=== PATIENT | female | born 1970 | race Hispanic/Latino ===

== ENCOUNTER 2017-07-06 17:15 | Emergency (ER) | payer MEDICAID ==
[2017-07-06 17:15] VITALS: BMI 20.9
[2017-07-06 17:23] VITALS: PULSE 82; RESP 18; O2SAT 100
[2017-07-06 18:28] LABS: VENOUS BLOOD GAS BASE EXCESS 2.7 mmol/L (0.0-2.0); VENOUS BLOOD GAS PCO2 50 mmHg (40-60); VENOUS BLOOD PH 7.37 (7.32-7.43)
[2017-07-06 18:30] LABS: EOS # 0.1 K/uL (0.0-0.7); LYMPH # 0.1 K/uL (1.0-4.3); LYMPH % 1.3 % (20.0-40.0); MEAN CORPUSCULAR HEMOGLOBIN 32.2 pg (27.0-31.0)
[2017-07-06 18:40] LABS: ALB/GLOB RATIO 1.2 (1.0-2.1); ALKALINE PHOSPHATASE 76 U/L (38-126); ALT/SGPT 54 U/L (9-52); AST/SGOT 30 U/L (14-36); BILIRUBIN,TOTAL 0.3 mg/dl (0.2-1.3); BLOOD UREA NITROGEN 17 mg/dl (7-17); CALCIUM 9.3 mg/dL (8.4-10.2); CARBON DIOXIDE 27 mmol/L (22-30); CHLORIDE 105 mmol/L (98-107); GFR AFRICAN-AMERICAN > 60; GLUCOSE,RANDOM 102 mg/dL (65-105); POTASSIUM 3.6 MMOL/L (3.6-5.0); SODIUM 140 mmol/l (132-148); TOTAL PROTEIN 6.3 G/DL (6.3-8.2)
[2017-07-06 18:47] LABS: BASO % 0.3 % (0.0-2.0); EOS % 0.7 % (0.0-4.0); HEMATOCRIT 38.4 % (34.0-47.0); MEAN CELL VOLUME 96.1 fl (81.0-99.0); MEAN CORPUSCULAR HGB CONC 33.6 g/dL (33.0-37.0); MEAN PLATELET VOLUME 9.3 fl (7.2-11.7); MONO % 8.7 % (0.0-10.0); NEUT # 9.8 K/uL (1.8-7.0); PLATELET COUNT 163 K/uL (130-400); RED CELL DISTRIBUTION WIDTH 13.2 % (11.5-14.5)
[2017-07-06 18:49] LABS: PARTIAL THROMBOPLASTIN TIME 29.4 Seconds (25.6-37.1)
--- NOTE | 2017-07-06 18:51 | ED PDOC ---
Addendum entered and electronically signed by Alisha Geronimo PA 07/09/17 10:13: Addendum Addendum: 07/09/17 10:12 Wound Cx results demonstrate sensitivity to CIPRO and resistance to pcn/ clinamycin. Cipro 500mg bid x 7 days called in to pharmacy [phone]. Patient has f/u with surgeon tomorrow. Original Note: HPI: Wound Care - HPI Chief Complaint (Provider): breast implant incision pain History Per: Patient Exam Limitations: no limitations Onset/Duration Of Symptoms: Days Location Of Injury: Right: Chest (inferior aspect of breast, where surgical incision was) Quality Of Symptoms: Painful, Swollen, Draining Additional Complaint(s): Pt is 46 yo F with PMH multiple sclerosis, who presented to the ED today after her co-workers noticed that her shirt was wet at her right breast. Pt underwent replacement of breast implants (which she has had for 13 yrs) last month, in May and 10 days later, the right incision opened. Pt saw her plastic surgeon the next day; he closed the wound and prescribed amoxicillin, and asked pt to follow up with him every few days, which pt has been doing. Two days ago, pt had not seen surgeon in 4 days, and stated that the entire right breast started to hurt. Pt saw surgeon yesterday- he then prescribed amoxicillin and clindamycin for 6 days. Pt saw surgeon today- states he cleaned the wound and asked her to come back tomorrow, but pt came here at the suggestion of her co- workers. Pt rates the pain a 10/10, localized to right breast and right sided chest wall, states pain does not radiate. Denies fever, chills, shortness of breath, crushing chest pain, palpitations, abdominal pain, nausea, vomiting, diarrhea, issues urinating, any blood in urine or stool. Pt was unable to recall the name of antibiotics she was on, so call was placed to her pharmacy, [facility] in [place]. Call was attempted to be placed to plastic surgeon Dr. Shiva Ramirez, but no service was in place to take the call. <Tisha Stearns - Last Filed: 07/06/17 19:30> <Alisha Geronimo - Last Filed: 07/09/17 10:12> <Ana Schmidt - Last Filed: 07/11/17 18:42> - HPI Time Seen by Provider: 07/06/17 17:26 Chief Complaint (Nursing): Wound Check Past Medical History Vital Signs: Last Vital Signs Temp 98.6 F 07/06/17 17:18 Pulse 82 07/06/17 17:18 Resp 18 07/06/17 17:18 BP 133/72 07/06/17 17:18 Pulse Ox 100 07/06/17 17:18 - Medical History PMH: Migraine ("a couple years back", had taken topamax with no relief), Multiple Sclerosis ([place]) Denies: Chronic Kidney Disease - Surgical History Surgical History: ( x 1) Other surgeries: breast augmentation x2. tummy tuck x1 - Family History Family History: States: CAD (father), Diabetes (father), Hypertension (mother) - Social History Current smoker - smoking cessation education provided: Yes (smokes 3-4 cig/ week. Used to smoke 2ppd for 10 yrs; stopped 1.5 yrs ago) Alcohol: Occasional Drugs: Denies - Immunization History Hx Tetanus Toxoid Vaccination: No Hx Influenza Vaccination: No Hx Pneumococcal Vaccination: No <Tisha Stearns - Last Filed: 07/06/17 19:30> <Alisha Geronimo - Last Filed: 07/09/17 10:12> Vital Signs: Last Vital Signs Temp 98.2 F 07/06/17 22:08 Pulse 82 07/06/17 22:08 Resp 18 07/06/17 22:08 BP 131/77 07/06/17 22:08 Pulse Ox 100 07/06/17 22:08 <Ana Schmidt - Last Filed: 07/11/17 18:42> - Home Medications Home Medications: Ambulatory Orders Medication Instructions Recorded Alprazolam 2 mg PO BID 04/25/15 Morphine Sulfate [Morphine Sulfate 30 mg PO BID 04/25/15 Immediate Release] Bifidobacterium Infantis [Align] 1 tab PO DAILY 12/06/16 Gabapentin 1 tab PO TID 12/06/16 Morphine Sulfate [Morphine Sulfate 1 tab PO PRN PRN 12/06/16 Cr] Psyllium Husk [Metamucil] 1 pkg PO PRN PRN 12/06/16 Topiramate [Topamax] 1 tab PO DAILY 12/06/16 - Allergies Allergies/Adverse Reactions: Allergies Allergy/AdvReac Type Severity Reaction Status Date / Time No Known Allergies Allergy Verified 03/11/16 13:33 Review of Systems ROS Statement: Except As Marked, All Systems Reviewed And Found Negative Skin: Positive for: Other (wound at breast augmentation incision) <Tisha Stearns - Last Filed: 07/06/17 19:30> Physical Exam - Physical Exam Appears: Positive for: Non-toxic, No Acute Distress Head Exam: Positive for: ATRAUMATIC, NORMAL INSPECTION Skin: Positive for: Normal Color, Warm. Negative for: Diaphoresis, Pallor Eye Exam: Positive for: Normal appearance (pt in colored contacts), EOMI ENT: Positive for: Normal ENT Inspection. Negative for: Nasal Congestion, Pharyngeal Erythema, Tonsillar Exudate Neck: Positive for: Normal, Painless ROM, Supple Cardiovascular/Chest: Positive for: Regular Rate, Rhythm, Other (Wound at infenior aspect of right breast leaking small visible amount of yellow pus-like fluid. Chest wall tenderness between breasts, and inferiorly and lateraly to R breast. Incision on L breast clean, dry, intact.) Respiratory: Positive for: Normal Breath Sounds. Negative for: Decreased Breath Sounds, Wheezing, Respiratory Distress Gastrointestinal/Abdominal: Positive for: Normal Exam, Bowel Sounds, Soft. Negative for: Tenderness, Mass Extremity: Positive for: Normal ROM. Negative for: Pedal Edema Neurologic/Psych: Positive for: Alert, Oriented <Tisha Stearns - Last Filed: 07/06/17 19:30> - Laboratory Results Result Diagrams: 07/06/17 18:10 07/06/17 18:10 - ECG O2 Sat by Pulse Oximetry: 100 - Progress ED Course And Treament: Pt seen and evaluated. Vital signs reviewed; stable, afebrile, normotensive, heart rate not elevated. Initial plan: CMP CBC PT/PTT Blood culture Would culture and gram stain Breast u/s VBG shock panel Lactate wnl mildly elevated WBC w/ left shift CMP mild elevation ALT, otherwise unremarkable Case discussed w/ Dr. Schmidt <Tisha Stearns - Last Filed: 07/06/17 19:30> - Laboratory Results Result Diagrams: 07/06/17 18:10 07/06/17 18:10 <Ana Schmidt - Last Filed: 07/11/17 18:42> Disposition - Patient ED Disposition Is Patient to be Admitted: Transfer of Care (to Dr. 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 <Ana Schmidt - Last Filed: 07/11/17 18:42>
[2017-07-06 19:46] LABS: EOSINOPHIL 1 % (0-7); NEUTROPHIL 86 % (42-75); TOTAL CELLS COUNTED 100
--- NOTE | 2017-07-06 21:31 | US ---
EXAM: US Right Breast Limited CLINICAL HISTORY: 46 years old, female; Signs and symptoms; Other: S/P implant replaced. Pain; Prior surgery; Surgery date: <1 month; Surgery type: S/P implant replaced on 06/13/17; Additional info: Infection R/O abscess TECHNIQUE: Static sonographic images of the right breast with image documentation utilizing a linear transducer. COMPARISON: No relevant prior studies available. FINDINGS: Limited study dedicated to right breast at site of incision at 6 o'clock. No free fluid or focal collection visualized at 6 o'clock at the site of incision. IMPRESSION: Limited study dedicated to right breast at site of incision at 6:00. No free fluid or focal collection visualized at 6 o'clock at the site of incision. Study does not evaluate integrity of the implant or remainder of the breast tissue beyond region of interest/site of incision. Correlate clinically. Followup as warranted.
[2017-07-06 22:09] VITALS: BP 131/77; TEMP 98.2
== END 2017-07-06 22:13 | disposition home or self-care (01) ==
LOC: H.ER 17:15
DX: N61.0 Mastitis without abscess (principal); F17.210 Nicotine dependence, cigarettes, uncomplicated
CPT/HCPCS: 76642; 80053; 82803; 85025; 85610; 85730; 86850; 86900; 87040; 87070; 96374; 96375; 99284; J1885; J2270

== ENCOUNTER 2017-09-26 23:07 | Emergency (ER) | payer MEDICAID ==
[2017-09-26 23:08] VITALS: BMI 20.9
[2017-09-26 23:22] VITALS: BP 136/64; PULSE 73; RESP 18; TEMP 99.6; O2SAT 99
--- NOTE | 2017-09-27 00:08 | ED PDOC ---
HPI: Wound Care <Alisha Geronimo - Last Filed: 09/27/17 23:54> - HPI Chief Complaint (Provider): right breast wound irritation History Per: Patient History Of Present Illness: 47 y/o female history of multiple sclerosis presents with irritation to right breast wound x 1 day. Patient states she had her 13 year old saline breast implants replaced in May by Dr. Ramirez in [place], and since then has had complications with surgical site reopening/infections. Patient followed up with Dr. Ramirez 07/16/17 and had a procedure in office to create a "pocket" under implant to prevent surgical site from reopening. Patient notes today before showering she found the incision site to be wet, when she looked she noted pus and clear drainage. Admits to "burning" sensation near incision site. Denies fever, nausea/vomiting, chest pain, abdominal pain. Patient did not contact her plastic surgeon because she does not plan on continuing her care with him. <Iesha Sultana - Last Filed: 09/29/17 05:31> - HPI Time Seen by Provider: 09/26/17 23:54 Chief Complaint (Nursing): Abnormal Skin Integrity Past Medical History Vital Signs: Last Vital Signs Temp 99.6 F 09/26/17 23:19 Pulse 73 09/26/17 23:19 Resp 18 09/26/17 23:19 BP 136/64 09/26/17 23:19 Pulse Ox 99 09/27/17 04:43 <Alisha Geronimo - Last Filed: 09/27/17 23:54> Reviewed: Historical Data, Nursing Documentation, Vital Signs Vital Signs: Last Vital Signs Temp 99.6 F 09/26/17 23:19 Pulse 73 09/26/17 23:19 Resp 18 09/26/17 23:19 BP 136/64 09/26/17 23:19 Pulse Ox 99 09/26/17 23:19 - Medical History PMH: Migraine ("a couple years back", had taken topamax with no relief), Multiple Sclerosis ([place]) Denies: Chronic Kidney Disease - Surgical History Surgical History: ( x 1) - Family History Family History: States: Unknown Family Hx, CAD (father), Diabetes (father), Hypertension (mother) - Immunization History Hx Tetanus Toxoid Vaccination: No Hx Influenza Vaccination: No Hx Pneumococcal Vaccination: No <Iesha Sultana - Last Filed: 09/29/17 05:31> - Home Medications Home Medications: Ambulatory Orders Medication Instructions Recorded Ciprofloxacin HCl [Cipro] 500 mg PO BID #13 tab 09/27/17 Alprazolam [Xanax] 2 mg PO Q8H PRN 09/28/17 Ascorbic Acid [Vitamin C 500 mg 1 tab PO DAILY 09/28/17 Tab] Cholecalciferol (Vitamin D3) 4,000 unit PO DAILY 09/28/17 [Vitamin D3] Cyanocobalamin [Vitamin B12] 500 mcg PO DAILY 09/28/17 Naloxegol Oxalate [Movantik] 25 mg PO DAILY PRN 09/28/17 - Allergies Allergies/Adverse Reactions: Allergies Allergy/AdvReac Type Severity Reaction Status Date / Time No Known Allergies Allergy Verified 03/11/16 13:33 Review of Systems ROS Statement: Except As Marked, All Systems Reviewed And Found Negative Skin: Positive for: Other (right breast incision site drainage) <Iesha Sultana - Last Filed: 09/29/17 05:31> Physical Exam - Reviewed Nursing Documentation Reviewed: Yes Vital Signs Reviewed: Yes - Physical Exam Appears: Positive for: Well, Non-toxic, No Acute Distress Head Exam: Positive for: ATRAUMATIC, NORMAL INSPECTION, NORMOCEPHALIC Cardiovascular/Chest: Positive for: Regular Rate, Rhythm, Other (right breast inframammary incision site with small puncture hole medial aspect; palpable soft , nontender lumpy structure at puncture hole site and also at 7:00 position on breast. No erythema, temp change, active drainage noted) Respiratory: Positive for: Normal Breath Sounds Extremity: Positive for: Normal ROM Neurologic/Psych: Positive for: Alert, Oriented <Iesha Sultana - Last Filed: 09/29/17 05:31> - Laboratory Results Result Diagrams: 09/27/17 01:21 09/27/17 01:21 <Alisha Geronimo - Last Filed: 09/27/17 23:54> - Laboratory Results Result Diagrams: 09/27/17 01:21 09/27/17 01:21 - ECG O2 Sat by Pulse Oximetry: 99 - Progress ED Course And Treament: labs, wound culture Patient educated on findings, discharged with rx Cipro (dose given in ED) which was sensitive on previous breast wound culture. Advised follow up with PS today. Return to ED for worsening/concerning symptoms. <Iesha Sultana - Last Filed: 09/29/17 05:31> Disposition <Alisha Geronimo - Last Filed: 09/27/17 23:54> - Patient ED Disposition Is Patient to be Admitted: No Counseled Patient/Family Regarding: Studies Performed, Diagnosis, Need For Followup - Disposition Disposition: Routine/Home Disposition Time: 02:59 <Iesha Sultana - Last Filed: 09/29/17 05:31> - Clinical Impression Clinical Impression: Wound dehiscence - Disposition Referrals: Peter Rosado MD [Primary Care Provider] - Condition: STABLE Additional Instructions: Follow up with your Plastic Surgeon today. Take medication as directed. Return to ED for worsening/concerning symptoms. Prescriptions: Ciprofloxacin HCl [Cipro] 500 mg PO BID #13 tab Instructions: Acute Wound Care (ED) Forms: [facility] ED School/Work Excuse
[2017-09-27 01:25] LABS: BASO % 0.3 % (0.0-2.0); EOS # 0.2 K/uL (0.0-0.7); EOS % 3.6 % (0.0-4.0); HEMATOCRIT 37.2 % (34.0-47.0); LYMPH # 0.2 K/uL (1.0-4.3); LYMPH % 4.6 % (20.0-40.0); MEAN CELL VOLUME 94.4 fl (81.0-99.0); MEAN CORPUSCULAR HEMOGLOBIN 31.9 pg (27.0-31.0); MEAN CORPUSCULAR HGB CONC 33.7 g/dL (33.0-37.0); MEAN PLATELET VOLUME 8.4 fl (7.2-11.7); MONO # 0.5 K/uL (0.0-0.8); NEUT # 4.2 K/uL (1.8-7.0); NEUT % 81.5 % (50.0-75.0); PLATELET COUNT 170 K/uL (130-400); RED CELL DISTRIBUTION WIDTH 12.9 % (11.5-14.5); WHITE BLOOD COUNT 5.1 K/uL (4.8-10.8)
[2017-09-27 01:31] LABS: BLOOD UREA NITROGEN 16 mg/dl (7-17); CALCIUM 8.9 mg/dL (8.4-10.2); CARBON DIOXIDE 29 mmol/L (22-30); CHLORIDE 102 mmol/L (98-107); GFR AFRICAN-AMERICAN > 60; GLUCOSE,RANDOM 120 mg/dL (65-105); POTASSIUM 4.2 MMOL/L (3.6-5.0); SODIUM 138 mmol/l (132-148)
[2017-09-27 04:23] LABS: NEUTROPHIL 83 % (42-75); TOTAL CELLS COUNTED 100
[2017-09-27 04:39] LABS: EOSINOPHIL 1 % (0-7)
== END 2017-09-27 03:19 | disposition home or self-care (01) ==
LOC: H.ER 23:07
DX: T81.31XA Disruption of external operation (surgical) wound, not elsewhere classified, initial encounter (principal); G35 Multiple sclerosis

== ENCOUNTER 2017-09-28 09:23 | Inpatient (IN) | payer MEDICAID ==
[2017-09-28 09:24] VITALS: BMI 20.9
--- NOTE | 2017-09-28 10:25 | ED PDOC ---
HPI: General Adult Time Seen by Provider: 09/28/17 09:29 Chief Complaint (Nursing): Abnormal Labs Chief Complaint (Provider): Positive blood culture History Per: Patient History/Exam Limitations: no limitations Onset/Duration Of Symptoms: Days Have you had recent travel within the past 21 days to any of the following countries: [place], [place], [place] or [place]?: No Recently: Seen In ED Additional Complaint(s): 47yo female, presents to ED today for a follow up visit. Patient states she was called yesterday to return to the ED as she had a positive blood culture. Patient states she was here early yesterday morning for evaluation of discharge from a wound on her right breast. Patient states she had a breast implant in her right breast and recently, she went to Dr. Ramirez, plastic surgeon who replaced the implant in her right breast. Patient states after the surgery, she had multiple complications including dehiscence and discharge from the wound. Patient currently denies any fever, chills, cough, vomiting, weakness, abdominal pain, headache, back pain. Patient does report mild rhinorrhea as she has had "a cold for several days". She reports taking Cippro 2 doses yesterday as prescribed and states her symptoms have not worsened. No other complaints. Past Medical History Reviewed: Historical Data, Nursing Documentation, Vital Signs Vital Signs: Last Vital Signs Temp 97.0 F L 09/28/17 09:29 Pulse 70 09/28/17 09:29 Resp 20 09/28/17 09:29 BP 123/72 09/28/17 09:29 Pulse Ox 97 09/28/17 14:35 - Medical History PMH: Migraine ("a couple years back", had taken topamax with no relief), Multiple Sclerosis ([place]) Denies: Chronic Kidney Disease - Surgical History Surgical History: ( x 1) - Family History Family History: States: Unknown Family Hx, CAD (father), Diabetes (father), Hypertension (mother) - Immunization History Hx Tetanus Toxoid Vaccination: No Hx Influenza Vaccination: No Hx Pneumococcal Vaccination: No - Home Medications Home Medications: Ambulatory Orders Medication Instructions Recorded Alprazolam 2 mg PO BID 04/25/15 Morphine Sulfate [Morphine Sulfate 30 mg PO BID 04/25/15 Immediate Release] Bifidobacterium Infantis [Align] 1 tab PO DAILY 12/06/16 Gabapentin 1 tab PO TID 12/06/16 Morphine Sulfate [Morphine Sulfate 1 tab PO PRN PRN 12/06/16 Cr] Psyllium Husk [Metamucil] 1 pkg PO PRN PRN 12/06/16 Topiramate [Topamax] 1 tab PO DAILY 12/06/16 Ciprofloxacin HCl [Cipro] 500 mg PO BID #13 tab 09/27/17 - Allergies Allergies/Adverse Reactions: Allergies Allergy/AdvReac Type Severity Reaction Status Date / Time No Known Allergies Allergy Verified 03/11/16 13:33 Review of Systems ROS Statement: Except As Marked, All Systems Reviewed And Found Negative Constitutional: Negative for: Fever, Chills Cardiovascular: Negative for: Chest Pain Respiratory: Negative for: Shortness of Breath Gastrointestinal: Negative for: Nausea, Vomiting Musculoskeletal: Negative for: Back Pain Neurological: Negative for: Headache Physical Exam - Reviewed Nursing Documentation Reviewed: Yes Vital Signs Reviewed: Yes - Physical Exam Appears: Positive for: Non-toxic, No Acute Distress Head Exam: Positive for: ATRAUMATIC, NORMAL INSPECTION, NORMOCEPHALIC Skin: Positive for: Normal Color Eye Exam: Positive for: Normal appearance Neck: Positive for: Supple Cardiovascular/Chest: Positive for: Regular Rate, Rhythm Respiratory: Positive for: Normal Breath Sounds Gastrointestinal/Abdominal: Positive for: Soft. Negative for: Tenderness Back: Positive for: Normal Inspection Extremity: Positive for: Normal ROM. Negative for: Deformity Neurologic/Psych: Positive for: Alert, Oriented. Negative for: Motor/Sensory Deficits - Laboratory Results Result Diagrams: 09/28/17 10:20 09/28/17 10:20 - ECG O2 Sat by Pulse Oximetry: 97 (RA) Pulse Ox Interpretation: Normal Medical Decision Making Medical Decision Making: Time: 957 Impression: Positive blood culture; rule out sepsisemia, bacteremia DDx: Contamination of blood culture Plan: -- BMP -- CBC -- Blood culture -- Reassess Time: 14:[address] Guevara, infectious disease specialist, who recommends patient be admitted and started on IV Zosyn, and IV Vancomycin. Scribe Attestation: Documented by Keisha Green & Mone Rodney, acting as a scribe for Gogo Platt MD. Provider Attestation: All medical record entries made by the Scribe were at my direction and personally dictated by me. I have reviewed the chart and agree that the record accurately reflects my personal performance of the history, physical exam, medical decision making, and the department course for this patient. I have also personally directed, reviewed, and agree with the discharge instructions and disposition. Disposition - Clinical Impression Clinical Impression: Breast infection, Bacteremia - Patient ED Disposition Is Patient to be Admitted: Yes Discussed With : Cassius Marks Doctor Will See Patient In The: Hospital Counseled Patient/Family Regarding: Studies Performed, Diagnosis - Disposition Disposition Time: 14:15 Condition: FAIR - Pt Status Changed To: Hospital Disposition Of: Inpatient - Admit Certification Admit to Inpatient:: After my assessment, the patient will require hospitalization for at least two midnights. This is because of the severity of symptoms shown, intensity of services needed, and/or the medical risk in this patient being treated as an outpatient. - POA Present On Arrival: Surgical Site Infection
[2017-09-28 10:35] LABS: BASO % 0.2 % (0.0-2.0); EOS # 0.1 K/uL (0.0-0.7); EOS % 2.7 % (0.0-4.0); HEMATOCRIT 40.4 % (34.0-47.0); LYMPH # 0.2 K/uL (1.0-4.3); LYMPH % 4.1 % (20.0-40.0); MEAN CELL VOLUME 94.8 fl (81.0-99.0); MEAN CORPUSCULAR HEMOGLOBIN 32.4 pg (27.0-31.0); MEAN CORPUSCULAR HGB CONC 34.1 g/dL (33.0-37.0); MEAN PLATELET VOLUME 8.6 fl (7.2-11.7); MONO # 0.5 K/uL (0.0-0.8); MONO % 9.7 % (0.0-10.0); NEUT # 4.4 K/uL (1.8-7.0); NEUT % 83.3 % (50.0-75.0); NRBC % 0.1 % (0.0-0.0); WHITE BLOOD COUNT 5.3 K/uL (4.8-10.8)
[2017-09-28 11:01] LABS: BLOOD UREA NITROGEN 15 mg/dl (7-17); CALCIUM 9.4 mg/dL (8.4-10.2); CARBON DIOXIDE 23 mmol/L (22-30); CHLORIDE 106 mmol/L (98-107); GFR AFRICAN-AMERICAN > 60; GLUCOSE,RANDOM 98 mg/dL (65-105); SODIUM 137 mmol/l (132-148)
[2017-09-28 11:18] LABS: POTASSIUM 4.8 MMOL/L (3.6-5.0)
[2017-09-28] MEDS ORDERED: cefTRIAXone IV 1 gm in Dextros 50 ML IVPB STA (12:11)
[2017-09-28] MEDS ORDERED: cefTRIAXone IV 1 gm in Dextros 50 ML IVPB ONE (12:44)
[2017-09-28] MEDS ORDERED: Piperacillin/Tazobact 3.375 GM in Sodium Chloride 0.9% 100 ML IVPB STA (14:02)
[2017-09-28] MEDS ORDERED: Vancomycin 1 g Inj ONE (14:12)
[2017-09-29] MEDS ORDERED: Piperacillin/Tazobact 3.375 GM in Sodium Chloride 0.9% 100 ML IVPB SCH
[2017-09-29] MEDS: Piperacillin/Tazobact 3.375 GM in Sodium Chloride 0.9% 100 ML IVPB SCH ×4 (03:57→21:52)
[2017-09-29 07:20] LABS: HEMATOCRIT 34.8 % (34.0-47.0); MEAN CELL VOLUME 95.7 fl (81.0-99.0); MEAN CORPUSCULAR HEMOGLOBIN 32.2 pg (27.0-31.0); MEAN CORPUSCULAR HGB CONC 33.7 g/dL (33.0-37.0); RED CELL DISTRIBUTION WIDTH 12.8 % (11.5-14.5); WHITE BLOOD COUNT 4.4 K/uL (4.8-10.8)
[2017-09-29 07:24] LABS: ALKALINE PHOSPHATASE 43 U/L (38-126); ALT/SGPT 32 U/L (9-52); AST/SGOT 17 U/L (14-36); BILIRUBIN,TOTAL 0.3 mg/dl (0.2-1.3); BLOOD UREA NITROGEN 15 mg/dl (7-17); CALCIUM 8.7 mg/dL (8.4-10.2); CARBON DIOXIDE 26 mmol/L (22-30); CHLORIDE 107 mmol/L (98-107); CHOLESTEROL 139 mg/dL (0-199); GFR AFRICAN-AMERICAN > 60; GLUCOSE,RANDOM 85 mg/dL (65-105); SODIUM 140 mmol/l (132-148); TOTAL PROTEIN 5.4 G/DL (6.3-8.2)
[2017-09-29 07:36] LABS: ALB/GLOB RATIO 1.6 (1.0-2.1)
[2017-09-29 07:39] LABS: T4 6.45 ug/dl (5.5-11.0)
[2017-09-29 08:05] LABS: THYROID STIMULATING HORMONE < 0.02 mIU/ML (0.46-4.68)
[2017-09-29] MEDS: CYANOCOBALAMIN 500 MCG TAB PO SCH (09:10)
--- NOTE | 2017-09-29 14:27 | CP.PCM.CON ---
History of Present Illness - History of Present Illness History of Present Illness: Plastic Surgery- Dr. Beasley 47F pmhx of Multiple sclerosis, breast implant and revision, initially presented to [facility] emergency department on 09/27/17. Blood and wound cultures were taken. at the time patient was discharged w/ local wound care. Blood cultures came back positive for Gram positive rods, bacillus species. Patient had breast implants initially 13 years ago, revision was performed in May of this year. Patient stated right breast has skin opening with yellow drainage. An attempt to close the wound was tried x2 and it re-opened with continued drainage. patient currently denies fevers, chills, chest pain, shortness of breath, nausea , vomiting, diarrhea, headaches, numbness/tingling in extremities PMH: stated above PSH: Breast implants (13 years ago), re-implant (2016), abdominoplasty ALL: NKDA Review of Systems - Review of Systems All systems: reviewed and no additional remarkable complaints except - Constitutional Constitutional: As Per HPI Past Patient History - Past Medical History & Family History Past Medical History?: Yes - Past Social History Smoking Status: Never Smoked - CARDIAC Hx Cardiac Disorders: No - PULMONARY Hx Respiratory Disorders: No - NEUROLOGICAL Hx Neurological Disorder: Yes Hx Multiple Sclerosis: Yes - HEENT Hx HEENT Problems: No - RENAL Hx Chronic Kidney Disease: No - ENDOCRINE/METABOLIC Hx Endocrine Disorders: No - HEMATOLOGICAL/ONCOLOGICAL Hx Blood Disorders: No - INTEGUMENTARY Hx Dermatological Problems: No - MUSCULOSKELETAL/RHEUMATOLOGICAL Hx Musculoskeletal Disorders: No Hx Falls: No - GASTROINTESTINAL Hx Gastrointestinal Disorders: No - GENITOURINARY/GYNECOLOGICAL Hx Genitourinary Disorders: No - PSYCHIATRIC Hx Psychophysiologic Disorder: No Hx Substance Use: No - SURGICAL HISTORY Hx Surgeries: Yes Hx Section: Yes Other/Comment: Breast implant, tummy tuck - ANESTHESIA Hx Anesthesia: Yes Hx Anesthesia Reactions: No Hx Malignant Hyperthermia: No Has any member of the family had a problem w/ anesthesia?: No Meds Allergies/Adverse Reactions: Allergies Allergy/AdvReac Type Severity Reaction Status Date / Time No Known Allergies Allergy Verified 03/11/16 13:33 - Medications Medications: Current Medications Alprazolam (Xanax) 1 mg PO Q8 PRN PRN Reason: Anxiety Last Admin: 09/28/17 22:42 Dose: 1 mg Ascorbic Acid (Vitamin C 500 Mg Tab) 500 mg PO DAILY [place] Last Admin: 09/29/17 09:10 Dose: 500 mg Cholecalciferol (Vitamin D) 4,000 iu PO DAILY [facility] Last Admin: 09/29/17 09:10 Dose: 4,000 iu Cyanocobalamin (Vitamin B12) 500 mcg PO DAILY [facility] Last Admin: 09/29/17 09:10 Dose: 500 mcg Home Med (Naloxegol Oxalate [Movantik]) 25 mg PO DAILY PRN PRN Reason: Constipation Vancomycin HCl 1 gm/ Sodium (Chloride) 250 mls @ 166.667 mls/hr IVPB Q12@0200, 1400 [place] PRN Reason: Protocol Last Admin: 09/29/17 01:14 Dose: 166.667 mls/hr Piperacillin Sod/Tazobactam (Sod 3.375 gm/ Sodium Chloride) 100 mls @ 100 mls/ hr IVPB Q6 [place] PRN Reason: Protocol Last Admin: 09/29/17 13:09 Dose: 100 mls/hr Ibuprofen (Motrin Tab) 400 mg PO Q6 PRN PRN Reason: Headache Last Admin: 09/29/17 09:30 Dose: 400 mg Physical Exam - Constitutional Appears: Non-toxic, No Acute Distress - Head Exam Head Exam: ATRAUMATIC - Eye Exam Eye Exam: EOMI. absent: Scleral icterus - ENT Exam ENT Exam: Mucous Membranes Moist - Neck Exam Neck exam: Positive for: Normal Inspection - Respiratory Exam Respiratory Exam: NORMAL BREATHING PATTERN. absent: Accessory Muscle Use, Respiratory Distress - Cardiovascular Exam Cardiovascular Exam: +S1, +S2. absent: Bradycardia, Tachycardia - GI/Abdominal Exam GI & Abdominal Exam: Normal Bowel Sounds, Soft. absent: Distended, Firm, Guarding, Rigid, Tenderness - Exam Additional comments: Breast Exam: Right breast smaller than left. opening sub-areolar. Active drainage, especially when pressure is applied superior to breast - Extremities Exam Extremities exam: Positive for: normal inspection. Negative for: calf tenderness - Back Exam Back exam: NORMAL INSPECTION. absent: CVA tenderness (L), CVA tenderness (R) - Neurological Exam Neurological exam: Alert, Normal Gait, Oriented x3 - Psychiatric Exam Psychiatric exam: Normal Affect - Skin Additional comments: right breast sub areolar tract, actively draining. Results - Vital Signs Recent Vital Signs: Last Vital Signs Temp 97.5 F L 09/29/17 08:03 Pulse 95 H 09/29/17 08:03 Resp 20 09/29/17 08:03 BP 165/87 H 09/29/17 08:03 Pulse Ox 97 09/29/17 08:03 - Labs Result Diagrams: 09/29/17 06:20 09/29/17 06:20 Labs: Laboratory Results - last 24 hr 09/29/17 09/29/17 09/29/17 06:20 06:20 07:07 WBC 4.4 L RBC 3.63 L Hgb 11.7 L D Hct 34.8 MCV 95.7 MCH 32.2 H MCHC 33.7 RDW 12.8 Plt Count 149 Sodium 140 Potassium 4.0 Chloride 107 Carbon Dioxide 26 Anion Gap 11 BUN 15 Creatinine 0.7 Est GFR ( Amer) > 60 Est GFR (Non-Af Amer) > 60 Random Glucose 85 Lactic Acid 1.1 Calcium 8.7 Total Bilirubin 0.3 AST 17 ALT 32 Alkaline Phosphatase 43 Total Protein 5.4 L Albumin 3.3 L Globulin 2.1 L Albumin/Globulin Ratio 1.6 Triglycerides 47 Cholesterol 139 LDL Cholesterol Direct 79 HDL Cholesterol 55 25-OH Vitamin D Total Thyroxine (T4) 6.45 TSH 3rd Generation < 0.02 L 09/29/17 08:33 WBC RBC Hgb Hct MCV MCH MCHC RDW Plt Count Sodium Potassium Chloride Carbon Dioxide Anion Gap BUN Creatinine Est GFR ( Amer) Est GFR (Non-Af Amer) Random Glucose Lactic Acid Calcium Total Bilirubin AST ALT Alkaline Phosphatase Total Protein Albumin Globulin Albumin/Globulin Ratio Triglycerides Cholesterol LDL Cholesterol Direct HDL Cholesterol 25-OH Vitamin D Total 33.7 Thyroxine (T4) TSH 3rd Generation Assessment & Plan - Assessment and Plan (Free Text) Assessment: 47F w/ bacteremia, 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 Ramos Calderon PGY1
--- NOTE | 2017-09-29 15:33 | CP.PCM.HP ---
History of Present Illness - History of Present Illness History of Present Illness: CC: Positive Blood Cultures. 47 y/o F, Hx of Breast implants, [facility] after been found with a Blood C-S 09-27-17 positive for Gram ( + ) Bacillus species, onset of wound 3 day [employer] with no improvement. Initially, Pt came to [facility] ER on 09/27/17 c/o of R breast pain and discharge x 1 day prior to ER visit. Hx of breast complications after her last breast implant revision on May 2017 at [facility] by Plastic Surgeon, Dr. Ramirez , there after attempt to close the wound was tried x 2 and it reopened with continue discharge yellow drainage. Pt with Hx of R Breast implant 13 yrs ago doing well until replacement was done. Pt came to ER [facility] 09-27-17 for drainage and pain in her R breast, she had blood C-S and C-S from wound site. Next day Pt was called to have f/u visit in the hospital for positive wound C-S and eventually was admitted. Hx. of MS. Aggravated factor: Pain on palpation to R breast. Pt denied: Fever, chills, n/v/d, abdominal pain, urinary symptoms, weakness, dizziness, headache, tingling, numbness, CP, SOB, sick contact, recent travel. Present on Admission - Present on Admission Any Indicators Present on Admission: No Review of Systems - Review of Systems All systems: reviewed and no additional remarkable complaints except (for HPI.) - Constitutional Constitutional: Other (neg) - EENT Eyes: Other (neg) Nose/Mouth/Throat: Other (n) - Breasts Breasts: Pain, Skin Changes Additional comments: open area breast implant surgical incision with discharge - Cardiovascular Cardiovascular: Other (neg) - Respiratory Respiratory: Other (neg) - Gastrointestinal Gastrointestinal: Other (neg) - Genitourinary Genitourinary: Other (neg) - Musculoskeletal Musculoskeletal: Other (neg) - Neurological Neurological: Other (neg) - Psychiatric Psychiatric: Other (neg) - Hematologic/Lymphatic Hematologic: Other (neg) Past Patient History - Past Medical History & Family History Past Medical History?: Yes Pertinent Family History: Father: CAD, DM Mother: HTN. - Past Social History Smoking Status: Never Smoked Alcohol: None Drugs: Denies Home Situation {Lives}: Alone - CARDIAC Hx Cardiac Disorders: No - PULMONARY Hx Respiratory Disorders: No - NEUROLOGICAL Hx Neurological Disorder: Yes Hx Multiple Sclerosis: Yes - HEENT Hx HEENT Problems: No - RENAL Hx Chronic Kidney Disease: No - ENDOCRINE/METABOLIC Hx Endocrine Disorders: No - HEMATOLOGICAL/ONCOLOGICAL Hx Blood Disorders: No - INTEGUMENTARY Hx Dermatological Problems: No - MUSCULOSKELETAL/RHEUMATOLOGICAL Hx Musculoskeletal Disorders: No Hx Falls: No - GASTROINTESTINAL Hx Gastrointestinal Disorders: No - GENITOURINARY/GYNECOLOGICAL Hx Genitourinary Disorders: No - PSYCHIATRIC Hx Psychophysiologic Disorder: No Hx Substance Use: No - SURGICAL HISTORY Hx Surgeries: Yes Hx Section: Yes Other/Comment: B/L Breast implants , tummy tuck - ANESTHESIA Hx Anesthesia: Yes Hx Anesthesia Reactions: No Hx Malignant Hyperthermia: No Has any member of the family had a problem w/ anesthesia?: No Meds Allergies/Adverse Reactions: Allergies Allergy/AdvReac Type Severity Reaction Status Date / Time No Known Allergies Allergy Verified 03/11/16 13:33 Physical Exam - Constitutional Appears: No Acute Distress - Head Exam Head Exam: NORMAL INSPECTION - Eye Exam Eye Exam: PERRL - ENT Exam ENT Exam: Normal Exam - Neck Exam Neck exam: Positive for: Normal Inspection - Respiratory Exam Respiratory Exam: Clear to Auscultation Bilateral Additional comments: Mild tenderness R breast wound site. - Cardiovascular Exam Cardiovascular Exam: REGULAR RHYTHM - GI/Abdominal Exam GI & Abdominal Exam: Normal Bowel Sounds, Soft - Extremities Exam Extremities exam: Positive for: normal inspection - Back Exam Back exam: NORMAL INSPECTION - Neurological Exam Neurological exam: Alert, Oriented x3 Additional comments: No motor sensory deficit. - Psychiatric Exam Psychiatric exam: Anxious - Skin Skin Exam: Warm Additional comments: R L Breast implants. R Breast smaller than L . R Breast lower surgical implant incision with open tract with discharge , nodules , area of fluctuation. Results - Vital Signs Recent Vital Signs: Last Vital Signs Temp 97.5 F L 09/29/17 08:03 Pulse 95 H 09/29/17 08:03 Resp 20 09/29/17 08:03 BP 165/87 H 09/29/17 08:03 Pulse Ox 97 09/29/17 08:03 reviewed Negra - Labs Result Diagrams: 09/30/17 06:15 09/30/17 06:15 Labs: Laboratory Results - last 24 hr 09/29/17 09/29/17 09/29/17 06:20 06:20 07:07 WBC 4.4 L RBC 3.63 L Hgb 11.7 L D Hct 34.8 MCV 95.7 MCH 32.2 H MCHC 33.7 RDW 12.8 Plt Count 149 Sodium 140 Potassium 4.0 Chloride 107 Carbon Dioxide 26 Anion Gap 11 BUN 15 Creatinine 0.7 Est GFR ( Amer) > 60 Est GFR (Non-Af Amer) > 60 Random Glucose 85 Lactic Acid 1.1 Calcium 8.7 Total Bilirubin 0.3 AST 17 ALT 32 Alkaline Phosphatase 43 Total Protein 5.4 L Albumin 3.3 L Globulin 2.1 L Albumin/Globulin Ratio 1.6 Triglycerides 47 Cholesterol 139 LDL Cholesterol Direct 79 HDL Cholesterol 55 25-OH Vitamin D Total Thyroxine (T4) 6.45 TSH 3rd Generation < 0.02 L 09/29/17 08:33 WBC RBC Hgb Hct MCV MCH MCHC RDW Plt Count Sodium Potassium Chloride Carbon Dioxide Anion Gap BUN Creatinine Est GFR ( Amer) Est GFR (Non-Af Amer) Random Glucose Lactic Acid Calcium Total Bilirubin AST ALT Alkaline Phosphatase Total Protein Albumin Globulin Albumin/Globulin Ratio Triglycerides Cholesterol LDL Cholesterol Direct HDL Cholesterol 25-OH Vitamin D Total 33.7 Thyroxine (T4) TSH 3rd Generation reviewed J.P. Assessment & Plan (1) Infection of right breast Status: Acute Priority: High Comment: infection with fistula tract surgical incision R breast implant (2) Bacteremia Assessment and Plan: G ( + ) bacillus Status: Acute Priority: High (3) Wound dehiscence Status: Acute Priority: High (4) Multiple sclerosis Status: Chronic Priority: Medium - Assessment and Plan (Free Text) Plan: Breast U/S, CT Chest, continue Vanco, Zosyn and rest of Tx. ID consult, Plastic Surgery consult , Patient may need R Breast implant removal. - Date & Time Date: 09/29/17 Time: 08:30
[2017-09-29] MEDS ORDERED: Iohexol 300 100 ML IJ ONE (17:12)
[2017-09-29] MEDS ORDERED: Sodium Chloride 0.9% 50 ML IV ONE (17:13)
--- NOTE | 2017-09-29 18:13 | CP.PCM.CON ---
History of Present Illness - History of Present Illness History of Present Illness: 47 y old woman was called to hospital because of blood culture positive. Pt had breast implant in May and about 10 days later had wound dehisence and was resutured and again had dehisence and was treated with cipro. Had documented infections with Staph and Enterobacter from wound. Pt complains of discharge and tenderness at the incision site Past Patient History - Past Medical History & Family History Past Medical History?: Yes - Past Social History Smoking Status: Never Smoked - CARDIAC Hx Cardiac Disorders: No - PULMONARY Hx Respiratory Disorders: No - NEUROLOGICAL Hx Neurological Disorder: Yes Hx Multiple Sclerosis: Yes - HEENT Hx HEENT Problems: No - RENAL Hx Chronic Kidney Disease: No - ENDOCRINE/METABOLIC Hx Endocrine Disorders: No - HEMATOLOGICAL/ONCOLOGICAL Hx Blood Disorders: No - INTEGUMENTARY Hx Dermatological Problems: No - MUSCULOSKELETAL/RHEUMATOLOGICAL Hx Musculoskeletal Disorders: No Hx Falls: No - GASTROINTESTINAL Hx Gastrointestinal Disorders: No - GENITOURINARY/GYNECOLOGICAL Hx Genitourinary Disorders: No - PSYCHIATRIC Hx Psychophysiologic Disorder: No Hx Substance Use: No - SURGICAL HISTORY Hx Surgeries: Yes Hx Section: Yes Other/Comment: Breast implant, tummy tuck - ANESTHESIA Hx Anesthesia: Yes Hx Anesthesia Reactions: No Hx Malignant Hyperthermia: No Has any member of the family had a problem w/ anesthesia?: No Meds Allergies/Adverse Reactions: Allergies Allergy/AdvReac Type Severity Reaction Status Date / Time No Known Allergies Allergy Verified 03/11/16 13:33 - Medications Medications: Current Medications Alprazolam (Xanax) 1 mg PO Q8 PRN PRN Reason: Anxiety Last Admin: 09/28/17 22:42 Dose: 1 mg Ascorbic Acid (Vitamin C 500 Mg Tab) 500 mg PO DAILY [facility] Last Admin: 09/29/17 09:10 Dose: 500 mg Cholecalciferol (Vitamin D) 4,000 iu PO DAILY [facility] Last Admin: 09/29/17 09:10 Dose: 4,000 iu Cyanocobalamin (Vitamin B12) 500 mcg PO DAILY [facility] Last Admin: 09/29/17 09:10 Dose: 500 mcg Hydromorphone HCl (Dilaudid) 0.5 mg IVP Q4 PRN PRN Reason: Pain, moderate (4-7) Vancomycin HCl 1 gm/ Sodium (Chloride) 250 mls @ 166.667 mls/hr IVPB Q12@0200, 1400 [facility] PRN Reason: Protocol Last Admin: 09/29/17 01:14 Dose: 166.667 mls/hr Piperacillin Sod/Tazobactam (Sod 3.375 gm/ Sodium Chloride) 100 mls @ 100 mls/ hr IVPB Q6 [facility] PRN Reason: Protocol Last Admin: 09/29/17 13:09 Dose: 100 mls/hr Sodium Chloride (Sodium Chloride 0.9%) 1,000 mls @ 95 mls/hr IV .[id number] [facility] Stop: 09/30/17 15:09 Ibuprofen (Motrin Tab) 400 mg PO Q6 PRN PRN Reason: Headache Last Admin: 09/29/17 09:30 Dose: 400 mg Pantoprazole Sodium (Protonix Inj) 40 mg IVP DAILY [facility] Physical Exam - Respiratory Exam Additional comments: lower aspect of right breast with multiple fluctuant nodules, currently no discharge. tender + Results - Vital Signs Recent Vital Signs: Last Vital Signs Temp 97.7 F 09/29/17 15:54 Pulse 62 09/29/17 15:54 Resp 18 09/29/17 15:54 BP 111/72 09/29/17 15:54 Pulse Ox 99 09/29/17 15:54 - Labs Result Diagrams: 09/29/17 06:20 09/29/17 06:20 Labs: Laboratory Results - last 24 hr 09/29/17 09/29/17 09/29/17 06:20 06:20 07:07 WBC 4.4 L RBC 3.63 L Hgb 11.7 L D Hct 34.8 MCV 95.7 MCH 32.2 H MCHC 33.7 RDW 12.8 Plt Count 149 Sodium 140 Potassium 4.0 Chloride 107 Carbon Dioxide 26 Anion Gap 11 BUN 15 Creatinine 0.7 Est GFR ( Amer) > 60 Est GFR (Non-Af Amer) > 60 Random Glucose 85 Lactic Acid 1.1 Calcium 8.7 Total Bilirubin 0.3 AST 17 ALT 32 Alkaline Phosphatase 43 Total Protein 5.4 L Albumin 3.3 L Globulin 2.1 L Albumin/Globulin Ratio 1.6 Triglycerides 47 Cholesterol 139 LDL Cholesterol Direct 79 HDL Cholesterol 55 25-OH Vitamin D Total Thyroxine (T4) 6.45 TSH 3rd Generation < 0.02 L 09/29/17 08:33 WBC RBC Hgb Hct MCV MCH MCHC RDW Plt Count Sodium Potassium Chloride Carbon Dioxide Anion Gap BUN Creatinine Est GFR ( Amer) Est GFR (Non-Af Amer) Random Glucose Lactic Acid Calcium Total Bilirubin AST ALT Alkaline Phosphatase Total Protein Albumin Globulin Albumin/Globulin Ratio Triglycerides Cholesterol LDL Cholesterol Direct HDL Cholesterol 25-OH Vitamin D Total 33.7 Thyroxine (T4) TSH 3rd Generation Assessment & Plan - Assessment and Plan (Free Text) Assessment: Non healing cellulitis with recurrent wound dehisence with blood culture growing gram positive bacillus with speciation not provided, 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 Agree with removal of implant Start treatment with Clindamycin 300 po q 8h for weeks Doxycycline 100mg po bid for 4 weeks. In the meantime, if wound culture comes positive for non tuberculous mycobacteria, then Avelox and Clarithromycin for 4 weeks.
--- NOTE | 2017-09-29 18:58 | RAD ---
PROCEDURE: CHEST RADIOGRAPH, 1 VIEW HISTORY: pre-op COMPARISON: None available. FINDINGS: LUNGS: Clear. PLEURA: No pneumothorax or pleural fluid seen. CARDIOVASCULAR: Normal. OSSEOUS STRUCTURES: No significant abnormalities. VISUALIZED UPPER ABDOMEN: Normal. OTHER FINDINGS: None. IMPRESSION: No active disease.
[2017-09-29] MEDS: Sodium Chloride 0.9% 1,000 ML IV SCH (19:20)
[2017-09-30] MEDS: Sodium Chloride 0.9% 1,000 ML IV SCH (03:46)
[2017-09-30] MEDS: Piperacillin/Tazobact 3.375 GM in Sodium Chloride 0.9% 100 ML IVPB SCH ×3 (04:44→21:21)
[2017-09-30 07:13] LABS: BASO % 0.5 % (0.0-2.0); EOS # 0.2 K/uL (0.0-0.7); EOS % 3.4 % (0.0-4.0); HEMATOCRIT 36.4 % (34.0-47.0); LYMPH # 0.3 K/uL (1.0-4.3); LYMPH % 5.1 % (20.0-40.0); MEAN CORPUSCULAR HEMOGLOBIN 32.4 pg (27.0-31.0); MEAN CORPUSCULAR HGB CONC 34.1 g/dL (33.0-37.0); MEAN PLATELET VOLUME 8.9 fl (7.2-11.7); MONO # 0.5 K/uL (0.0-0.8); MONO % 9.7 % (0.0-10.0); NEUT % 81.3 % (50.0-75.0); NRBC % 0.1 % (0.0-0.0); PLATELET COUNT 140 K/uL (130-400); RED CELL DISTRIBUTION WIDTH 12.7 % (11.5-14.5)
[2017-09-30 07:17] LABS: ALKALINE PHOSPHATASE 44 U/L (38-126); ALT/SGPT 38 U/L (9-52); AST/SGOT 18 U/L (14-36); BILIRUBIN,TOTAL 0.3 mg/dl (0.2-1.3); BLOOD UREA NITROGEN 14 mg/dl (7-17); CALCIUM 8.7 mg/dL (8.4-10.2); CARBON DIOXIDE 27 mmol/L (22-30); CHLORIDE 109 mmol/L (98-107); GFR AFRICAN-AMERICAN > 60; GLUCOSE,RANDOM 90 mg/dL (65-105); POTASSIUM 3.9 MMOL/L (3.6-5.0); SODIUM 143 mmol/l (132-148); TOTAL PROTEIN 5.9 G/DL (6.3-8.2)
[2017-09-30 07:21] LABS: PARTIAL THROMBOPLASTIN TIME 30.8 Seconds (25.6-37.1)
[2017-09-30 07:29] LABS: ALB/GLOB RATIO 1.5 (1.0-2.1)
[2017-09-30] MEDS: CYANOCOBALAMIN 500 MCG TAB PO SCH (09:36)
[2017-09-30 10:08] LABS: BASOPHIL 1 % (0-2); EOSINOPHIL 3 % (0-7); NEUTROPHIL 76 % (42-75); REACTIVE LYMPHOCYTES 1 % (0-0); TOTAL CELLS COUNTED 100
[2017-09-30 10:09] LABS: LARGE PLATELETS PRESENT
--- NOTE | 2017-09-30 10:48 | CP.PCM.PN ---
Subjective - Subjective Subjective: no AD , minimal drainage last night , R Breast open tract area Objective - Vital Signs/Intake and Output Vital Signs (last 24 hours): Temp Pulse Resp BP Pulse Ox 98 F 66 20 115/73 100 09/30/17 08:17 09/30/17 08:17 09/30/17 08:17 09/30/17 08:17 09/30/17 08:17 - Medications Medications: Current Medications Alprazolam (Xanax) 1 mg PO Q8 PRN PRN Reason: Anxiety Last Admin: 09/28/17 22:42 Dose: 1 mg Ascorbic Acid (Vitamin C 500 Mg Tab) 500 mg PO DAILY [facility] Last Admin: 09/30/17 09:36 Dose: Not Given Cholecalciferol (Vitamin D) 4,000 iu PO DAILY [facility] Last Admin: 09/30/17 09:36 Dose: Not Given Cyanocobalamin (Vitamin B12) 500 mcg PO DAILY [facility] Last Admin: 09/30/17 09:36 Dose: Not Given Hydromorphone HCl (Dilaudid) 0.5 mg IVP Q4 PRN PRN Reason: Pain, moderate (4-7) Vancomycin HCl 1 gm/ Sodium (Chloride) 250 mls @ 166.667 mls/hr IVPB Q12@0200, 1400 [facility] PRN Reason: Protocol Last Admin: 09/30/17 01:52 Dose: 166.667 mls/hr Piperacillin Sod/Tazobactam (Sod 3.375 gm/ Sodium Chloride) 100 mls @ 100 mls/ hr IVPB Q6 [facility] PRN Reason: Protocol Last Admin: 09/30/17 09:46 Dose: 100 mls/hr Sodium Chloride (Sodium Chloride 0.9%) 1,000 mls @ 95 mls/hr IV .[id number] [facility] Stop: 09/30/17 15:09 Last Admin: 09/30/17 03:46 Dose: Not Given Ibuprofen (Motrin Tab) 400 mg PO Q6 PRN PRN Reason: Headache Last Admin: 09/29/17 09:30 Dose: 400 mg Pantoprazole Sodium (Protonix Inj) 40 mg IVP DAILY [facility] Last Admin: 09/30/17 09:46 Dose: 40 mg - Labs Labs: 09/30/17 06:15 09/30/17 06:15 PT 11.2 Seconds (9.8-13.1) 09/30/17 06:15 INR 1.0 (0.9-1.2) 09/30/17 06:15 APTT 30.8 Seconds (25.6-37.1) 09/30/17 06:15 - Constitutional Appears: No Acute Distress - Head Exam Head Exam: NORMAL INSPECTION - Eye Exam Eye Exam: PERRL - ENT Exam ENT Exam: Normal Exam - Neck Exam Neck Exam: Normal Inspection - Respiratory Exam Respiratory Exam: Clear to Ausculation Bilateral, NORMAL BREATHING PATTERN - Cardiovascular Exam Cardiovascular Exam: REGULAR RHYTHM - GI/Abdominal Exam GI & Abdominal Exam: Soft, Normal Bowel Sounds - Extremities Exam Extremities Exam: Normal Capillary Refill, Normal Inspection - Back Exam Back Exam: NORMAL INSPECTION - Neurological Exam Neurological Exam: Alert, CN II-XII Intact, Oriented x3. absent: Motor Sensory Deficit - Psychiatric Exam Psychiatric exam: Normal Affect, Normal Mood - Skin Additional comments: R L Breast implants , Right Breast smaller than Left Breast . R Breast lower surgical implant incision with open area, nodules, area of fluctuation. Assessment and Plan (1) Infection of right breast Assessment & Plan: implant Status: Acute (2) Bacteremia Status: Acute (3) Wound dehiscence Status: Acute (4) Multiple sclerosis Status: Chronic - Assessment and Plan (Free Text) Plan: CXR , blood test were reviewed , EKG RSR , Plastic Surgery team for removal of R Breast implant . Patient is medically cleared for Surgery
--- NOTE | 2017-09-30 11:56 | CT ---
PROCEDURE: CT Chest with contrast HISTORY: fistula w/ foreign body COMPARISON: Comparison is made to the previous study dated 03/11/2016 TECHNIQUE: Contiguous axial images were obtained through the chest with intravenous contrast enhancement. Sagittal and coronal reconstructions were performed. IV contrast: 90 mL of Omnipaque 300 Radiation dose (DLP): 271.02 mGy-cm. This CT exam was performed using one or more of the following dose reduction techniques: Automated exposure control, adjustment of the mA and/or kV according to patient size, and/or use of iterative reconstruction technique. FINDINGS: LUNGS: No evidence of acute pathology in the lungs. Mild emphysematous changes needed at the lung apices. MEDIASTINUM: Unremarkable thoracic aorta. No aneurysm or dissection. Normal sized heart. Main pulmonary artery unremarkable. No vascular congestion. No lymphadenopathy. PLEURA: No pleural fluid. No pneumothorax. BONES: No fracture. No destructive lesion. UPPER ABDOMEN: There are nonobstructing left renal calculi. OTHER FINDINGS: Interval disruption/rupture of the right Aliyah in augmentation mammoplasty since the previous exam. IMPRESSION: No evidence of acute pathology in the lungs. Interval disruption/rupture of the envelope of the right saline augmentation mammoplasty since the previous exam. Otherwise no interval change. Preliminary report was submitted by virtual Radiology.
--- NOTE | 2017-09-30 13:07 | CP.PCM.PN ---
Subjective - Date & Time of Evaluation Date of Evaluation: 09/30/17 - Subjective Subjective: F/U R Beast infection Objective - Vital Signs/Intake and Output Vital Signs (last 24 hours): Temp Pulse Resp BP Pulse Ox 98 F 66 20 115/73 100 09/30/17 08:17 09/30/17 08:17 09/30/17 08:17 09/30/17 08:17 09/30/17 08:17 - Medications Medications: Current Medications Alprazolam (Xanax) 1 mg PO Q8 PRN PRN Reason: Anxiety Last Admin: 09/28/17 22:42 Dose: 1 mg Ascorbic Acid (Vitamin C 500 Mg Tab) 500 mg PO DAILY [facility] Last Admin: 09/30/17 09:36 Dose: Not Given Cholecalciferol (Vitamin D) 4,000 iu PO DAILY [facility] Last Admin: 09/30/17 09:36 Dose: Not Given Cyanocobalamin (Vitamin B12) 500 mcg PO DAILY [facility] Last Admin: 09/30/17 09:36 Dose: Not Given Hydromorphone HCl (Dilaudid) 0.5 mg IVP Q4 PRN PRN Reason: Pain, moderate (4-7) Vancomycin HCl 1 gm/ Sodium (Chloride) 250 mls @ 166.667 mls/hr IVPB Q12@0200, 1400 [facility] PRN Reason: Protocol Last Admin: 09/30/17 01:52 Dose: 166.667 mls/hr Piperacillin Sod/Tazobactam (Sod 3.375 gm/ Sodium Chloride) 100 mls @ 100 mls/ hr IVPB Q6 [facility] PRN Reason: Protocol Last Admin: 09/30/17 09:46 Dose: 100 mls/hr Sodium Chloride (Sodium Chloride 0.9%) 1,000 mls @ 95 mls/hr IV .[id number] [facility] Stop: 09/30/17 15:09 Last Admin: 09/30/17 03:46 Dose: Not Given Ibuprofen (Motrin Tab) 400 mg PO Q6 PRN PRN Reason: Headache Last Admin: 09/29/17 09:30 Dose: 400 mg Pantoprazole Sodium (Protonix Inj) 40 mg IVP DAILY [facility] Last Admin: 09/30/17 09:46 Dose: 40 mg - Labs Labs: 09/30/17 06:15 09/30/17 06:15 PT 11.2 Seconds (9.8-13.1) 09/30/17 06:15 INR 1.0 (0.9-1.2) 09/30/17 06:15 APTT 30.8 Seconds (25.6-37.1) 09/30/17 06:15 - Constitutional Appears: No Acute Distress - Head Exam Head Exam: NORMAL INSPECTION - Eye Exam Eye Exam: PERRL - ENT Exam ENT Exam: Normal Exam - Neck Exam Neck Exam: Normal Inspection - Respiratory Exam Respiratory Exam: Clear to Ausculation Bilateral - Cardiovascular Exam Cardiovascular Exam: REGULAR RHYTHM - GI/Abdominal Exam GI & Abdominal Exam: Soft, Normal Bowel Sounds - Extremities Exam Extremities Exam: Normal Capillary Refill, Normal Inspection - Back Exam Back Exam: NORMAL INSPECTION - Neurological Exam Neurological Exam: Alert, Oriented x3. absent: Motor Sensory Deficit - Psychiatric Exam Psychiatric exam: Normal Affect, Normal Mood - Skin Skin Exam: Warm Additional comments: Implants b/l breast, R smaller deb L, R breast lower surgical implant incision with open area, nodules, area of fluctuation. Assessment and Plan (1) Infection of right breast Status: Acute (2) Bacteremia Status: Acute (3) Wound dehiscence Status: Acute (4) Multiple sclerosis Status: Chronic
[2017-09-30] MEDS ORDERED: EPINEPHrine 1 mg/ml (1:1000) Inj ONE (13:29)
[2017-09-30] MEDS ORDERED: Lidocaine 1% Inj (20ml) ONE (13:29)
[2017-09-30] MEDS ORDERED: Propofol 10 mg/ml Inj (20 ML) ONE (13:48)
[2017-09-30] MEDS ORDERED: Rocuronium 10 mg/ml (5 ml) ONE (13:49)
[2017-09-30] MEDS ORDERED: Phenylephrine 10 mg/ml Inj ONE (13:51)
[2017-09-30] MEDS ORDERED: Midazolam 2 MG/2 ML VIAL ONE (14:31)
[2017-09-30] MEDS ORDERED: Bupivacaine 0.5% Inj(30mL) ONE (14:33)
[2017-09-30] MEDS ORDERED: Lactated Ringer's 500 ML IV ONE (14:43)
[2017-09-30] MEDS ORDERED: Vancomycin 1 g Inj IVPB ONE (14:56)
[2017-09-30] MEDS ORDERED: Bacitracin Ointment 30 GM TUBE ONE (15:13)
[2017-09-30] MEDS ORDERED: Bacitracin OINT 15GM TOP ONE (15:18)
--- NOTE | 2017-09-30 16:02 | PCM.SURG1 ---
Surgeon's Initial Post Op Note - Surgeon's Notes Surgeon: Dr. Beasley Progress Worker: Dr. Neumann PGY2, PGY1 Type of Anesthesia: General LMA Pre-Operative Diagnosis: infected right breast implant Operative Findings: right breast fisutla communicating with right breast implant. deflated breast implant Post-Operative Diagnosis: as above Operation Performed: bilateral infected implant with removal with bilateral YANET placement, right breast scar excision Specimen/Specimens Removed: right breast implant, left breast implant, right scar excision Estimated Blood Loss: EBL {In ML}: 10 Blood Products Given: N/A Drains Used: Isaias Sosa (x2) Post-Op Condition: Good Date of Surgery/Procedure: 09/30/17 Time of Surgery/Procedure: 14:35
[2017-09-30] MEDS ORDERED: Lactated Ringer's 1,000 ML IV SCH (16:15)
--- NOTE | 2017-09-30 17:41 | CARD ---
APPROVED REPORT EKG Measurement Heart [id number] <Conclusion> Normal sinus rhythm Normal ECG
[2017-10-01] MEDS: Piperacillin/Tazobact 3.375 GM in Sodium Chloride 0.9% 100 ML IVPB SCH ×5 (04:47→21:17)
[2017-10-01 07:07] LABS: BASO % 0.3 % (0.0-2.0); EOS # 0.2 K/uL (0.0-0.7); EOS % 2.6 % (0.0-4.0); HEMATOCRIT 32.2 % (34.0-47.0); LYMPH # 0.2 K/uL (1.0-4.3); LYMPH % 3.6 % (20.0-40.0); MEAN CELL VOLUME 94.5 fl (81.0-99.0); MEAN CORPUSCULAR HEMOGLOBIN 32.8 pg (27.0-31.0); MEAN CORPUSCULAR HGB CONC 34.7 g/dL (33.0-37.0); MEAN PLATELET VOLUME 8.9 fl (7.2-11.7); MONO # 0.7 K/uL (0.0-0.8); MONO % 11.4 % (0.0-10.0); NEUT # 4.8 K/uL (1.8-7.0); NEUT % 82.1 % (50.0-75.0); NRBC % 0.1 % (0.0-0.0); RED CELL DISTRIBUTION WIDTH 12.7 % (11.5-14.5); WHITE BLOOD COUNT 5.8 K/uL (4.8-10.8)
[2017-10-01 07:14] LABS: BILIRUBIN,TOTAL 0.2 mg/dl (0.2-1.3); CALCIUM 8.4 mg/dL (8.4-10.2); POTASSIUM 3.6 MMOL/L (3.6-5.0); TOTAL PROTEIN 5.1 G/DL (6.3-8.2)
[2017-10-01 07:21] LABS: ALB/GLOB RATIO 1.4 (1.0-2.1)
[2017-10-01] MEDS: CYANOCOBALAMIN 500 MCG TAB PO SCH (09:46)
--- NOTE | 2017-10-01 10:37 | CP.PCM.PN ---
Subjective - Date & Time of Evaluation Date of Evaluation: 10/01/17 Time of Evaluation: 07:00 - Subjective Subjective: Plastic Surgery- Dr. Beasley Patient seen and examined at bedside this morning. No acute events overnight. J/ P drain x2 secure with minimal output. Dressing clean dry and intact. Denies fevers, chills, shortness of breath, nausea, vomiting. Objective - Vital Signs/Intake and Output Vital Signs (last 24 hours): Temp Pulse Resp BP Pulse Ox 98.5 F 59 L 18 111/75 99 10/01/17 08:32 10/01/17 08:32 10/01/17 08:32 10/01/17 08:32 10/01/17 08:32 - Medications Medications: Current Medications Alprazolam (Xanax) 1 mg PO Q8 PRN PRN Reason: Anxiety Last Admin: 09/28/17 22:42 Dose: 1 mg Ascorbic Acid (Vitamin C 500 Mg Tab) 500 mg PO DAILY [facility] Last Admin: 10/01/17 09:46 Dose: 500 mg Cholecalciferol (Vitamin D) 4,000 iu PO DAILY [facility] Last Admin: 10/01/17 09:46 Dose: 4,000 iu Cyanocobalamin (Vitamin B12) 500 mcg PO DAILY [facility] Last Admin: 10/01/17 09:46 Dose: 500 mcg Hydromorphone HCl (Dilaudid) 0.5 mg IVP Q4 PRN PRN Reason: Pain, moderate (4-7) Last Admin: 10/01/17 09:55 Dose: 0.5 mg Vancomycin HCl 1 gm/ Sodium (Chloride) 250 mls @ 166.667 mls/hr IVPB Q12@0200, 1400 [facility] PRN Reason: Protocol Last Admin: 10/01/17 01:36 Dose: 166.667 mls/hr Piperacillin Sod/Tazobactam (Sod 3.375 gm/ Sodium Chloride) 100 mls @ 100 mls/ hr IVPB Q6 [facility] PRN Reason: Protocol Last Admin: 10/01/17 04:47 Dose: 100 mls/hr Lactated Ringer's (Lactated Ringer's) 1,000 mls @ 75 mls/hr IV .[id number] [facility] Last Admin: 10/01/17 05:00 Dose: 75 mls/hr Ibuprofen (Motrin Tab) 400 mg PO Q6 PRN PRN Reason: Headache Last Admin: 09/30/17 20:08 Dose: 400 mg Pantoprazole Sodium (Protonix Inj) 40 mg IVP DAILY [facility] Last Admin: 10/01/17 09:39 Dose: 40 mg - Labs Labs: 10/01/17 05:20 10/01/17 05:20 PT 11.2 Seconds (9.8-13.1) 09/30/17 06:15 INR 1.0 (0.9-1.2) 09/30/17 06:15 APTT 30.8 Seconds (25.6-37.1) 09/30/17 06:15 - Constitutional Appears: Non-toxic, No Acute Distress - Head Exam Head Exam: ATRAUMATIC - Eye Exam Eye Exam: EOMI. absent: Scleral icterus - ENT Exam ENT Exam: Mucous Membranes Moist - Respiratory Exam Respiratory Exam: NORMAL BREATHING PATTERN. absent: Accessory Muscle Use, Respiratory Distress - Cardiovascular Exam Cardiovascular Exam: +S1, +S2. absent: Bradycardia, Tachycardia - GI/Abdominal Exam GI & Abdominal Exam: Soft. absent: Distended, Firm, Guarding, Rigid, Tenderness - Exam Additional comments: Breast: dressing in place, C/D/I no strikethrough - Back Exam Back Exam: NORMAL INSPECTION - Neurological Exam Neurological Exam: Alert, Awake, Oriented x3 - Skin Skin Exam: Intact, Warm Assessment and Plan - Assessment and Plan (Free Text) Assessment: 47F bacteremia, infected right breast implant s/p bilateral breast implant removal with bilateral YANET placement, right breast scar excision Plan: - cleared for discharge from a surgical standpoint - home on antibiotics. ID recs appreciated - J/P drain to remain in place. follow up with Dr. Beasley as outpatient in 1 week - discussed with Dr. Ramos Calderon PGY1
--- NOTE | 2017-10-01 17:41 | US ---
PROCEDURE: RIGHT BREAST ULTRASONOGRAPHY. HISTORY: md order COMPARISON: Right breast ultrasonography 09/29/2017. TECHNIQUE: Ultrasonography of the entire versus performed throughout all radiuses for evaluation of right breast tenderness. Patient underwent bilateral implant replacement 06/13/2017. FINDINGS: In the prior right breast ultrasound examination dated 07/06/2017, the previously demonstrated implant and is not decompressed with linguini sign clearly evident at the operative site central right breast. Trace fluid is seen in the periphery as well as within the implant compatible with implant failure. MRI can be performed for further care station if clinically warranted. IMPRESSION: Implant failure identified compatible with rupture. Follow-up MRI can be performed if clinically required.
--- NOTE | 2017-10-01 22:50 | CP.PCM.PN ---
Subjective - Date & Time of Evaluation Date of Evaluation: 10/01/17 Time of Evaluation: 10:30 - Subjective Subjective: F/U R Breast infection Pt with minimal post-surgical pain, R-L breast implant were removed. Objective - Vital Signs/Intake and Output Vital Signs (last 24 hours): Temp Pulse Resp BP Pulse Ox 98.5 F 59 L 18 111/75 99 10/01/17 08:32 10/01/17 08:32 10/01/17 08:32 10/01/17 08:32 10/01/17 08:32 - Medications Medications: Current Medications Alprazolam (Xanax) 1 mg PO Q8 PRN PRN Reason: Anxiety Last Admin: 09/28/17 22:42 Dose: 1 mg Ascorbic Acid (Vitamin C 500 Mg Tab) 500 mg PO DAILY [facility] Last Admin: 10/01/17 09:46 Dose: 500 mg Cholecalciferol (Vitamin D) 4,000 iu PO DAILY [facility] Last Admin: 10/01/17 09:46 Dose: 4,000 iu Cyanocobalamin (Vitamin B12) 500 mcg PO DAILY [facility] Last Admin: 10/01/17 09:46 Dose: 500 mcg Hydromorphone HCl (Dilaudid) 0.5 mg IVP Q4 PRN PRN Reason: Pain, moderate (4-7) Last Admin: 10/01/17 20:35 Dose: 0.5 mg Vancomycin HCl 1 gm/ Sodium (Chloride) 250 mls @ 166.667 mls/hr IVPB Q12@0200, 1400 [facility] PRN Reason: Protocol Last Admin: 10/01/17 14:35 Dose: 166.667 mls/hr Piperacillin Sod/Tazobactam (Sod 3.375 gm/ Sodium Chloride) 100 mls @ 100 mls/ hr IVPB Q6 [facility] PRN Reason: Protocol Last Admin: 10/01/17 21:17 Dose: 100 mls/hr Lactated Ringer's (Lactated Ringer's) 1,000 mls @ 75 mls/hr IV .[id number] [facility] Last Admin: 10/01/17 05:00 Dose: 75 mls/hr Ibuprofen (Motrin Tab) 400 mg PO Q6 PRN PRN Reason: Headache Last Admin: 09/30/17 20:08 Dose: 400 mg Pantoprazole Sodium (Protonix Inj) 40 mg IVP DAILY [facility] Last Admin: 10/01/17 09:39 Dose: 40 mg - Labs Labs: 10/01/17 05:20 10/01/17 05:20 PT 11.2 Seconds (9.8-13.1) 09/30/17 06:15 INR 1.0 (0.9-1.2) 09/30/17 06:15 APTT 30.8 Seconds (25.6-37.1) 09/30/17 06:15 - Constitutional Appears: No Acute Distress - Head Exam Head Exam: NORMAL INSPECTION - Eye Exam Eye Exam: PERRL - ENT Exam ENT Exam: Normal Exam - Neck Exam Neck Exam: Normal Inspection - Respiratory Exam Respiratory Exam: Clear to Ausculation Bilateral Additional comments: S/P removal b/l breast implants. dressing in place. - Cardiovascular Exam Cardiovascular Exam: REGULAR RHYTHM - GI/Abdominal Exam GI & Abdominal Exam: Soft, Normal Bowel Sounds - Extremities Exam Extremities Exam: Normal Capillary Refill, Normal Inspection - Back Exam Back Exam: NORMAL INSPECTION - Neurological Exam Neurological Exam: Alert, CN II-XII Intact, Oriented x3. absent: Motor Sensory Deficit - Psychiatric Exam Psychiatric exam: Normal Affect, Normal Mood - Skin Skin Exam: Warm Assessment and Plan (1) Infection of right breast Status: Acute (2) Bacteremia Status: Acute (3) Wound dehiscence Status: Acute (4) Multiple sclerosis Status: Chronic - Assessment and Plan (Free Text) Plan: Improved and stable to be discharged, see instructions medication sheet, f/u with PMD and Plastic surgeon next week.
[2017-10-02] MEDS: Piperacillin/Tazobact 3.375 GM in Sodium Chloride 0.9% 100 ML IVPB SCH ×2 (04:36→10:18)
[2017-10-02 07:23] LABS: BILIRUBIN,TOTAL 0.2 mg/dl (0.2-1.3); CALCIUM 8.4 mg/dL (8.4-10.2); POTASSIUM 3.7 MMOL/L (3.6-5.0); TOTAL PROTEIN 5.4 G/DL (6.3-8.2)
[2017-10-02 07:25] VITALS: BP 122/68; PULSE 68; RESP 18; TEMP 98; O2SAT 100
[2017-10-02 07:26] LABS: BASO % 0.2 % (0.0-2.0); EOS # 0.1 K/uL (0.0-0.7); HEMATOCRIT 34.8 % (34.0-47.0); LYMPH # 0.2 K/uL (1.0-4.3); LYMPH % 3.2 % (20.0-40.0); MEAN CELL VOLUME 96.6 fl (81.0-99.0); MEAN CORPUSCULAR HGB CONC 33.2 g/dL (33.0-37.0); MEAN PLATELET VOLUME 9.4 fl (7.2-11.7); MONO # 0.8 K/uL (0.0-0.8); MONO % 11.2 % (0.0-10.0); NEUT # 5.6 K/uL (1.8-7.0); NEUT % 83.4 % (50.0-75.0); NRBC % 0.1 % (0.0-0.0); WHITE BLOOD COUNT 6.7 K/uL (4.8-10.8)
[2017-10-02 07:36] LABS: ALB/GLOB RATIO 1.3 (1.0-2.1)
--- NOTE | 2017-10-02 08:26 | CP.PCM.PN ---
Subjective - Date & Time of Evaluation Date of Evaluation: 10/02/17 Time of Evaluation: 07:10 - Subjective Subjective: Plastic Surgery- Dr. Beasley Patient seen and examined at bedside this AM. no acute events overnight. tolerating current diet. YANET drain x [address] with minimal serous output. Denies Fevers, chills, chest pain, shortness of breath, nausea, vomiting. Objective - Vital Signs/Intake and Output Vital Signs (last 24 hours): Temp Pulse Resp BP Pulse Ox 98.0 F 68 18 122/68 100 10/02/17 07:24 10/02/17 07:24 10/02/17 07:24 10/02/17 07:24 10/02/17 07:24 - Medications Medications: Current Medications Alprazolam (Xanax) 1 mg PO Q8 PRN PRN Reason: Anxiety Last Admin: 09/28/17 22:42 Dose: 1 mg Ascorbic Acid (Vitamin C 500 Mg Tab) 500 mg PO DAILY [facility] Last Admin: 10/01/17 09:46 Dose: 500 mg Cholecalciferol (Vitamin D) 4,000 iu PO DAILY [facility] Last Admin: 10/01/17 09:46 Dose: 4,000 iu Cyanocobalamin (Vitamin B12) 500 mcg PO DAILY [facility] Last Admin: 10/01/17 09:46 Dose: 500 mcg Hydromorphone HCl (Dilaudid) 0.5 mg IVP Q4 PRN PRN Reason: Pain, moderate (4-7) Last Admin: 10/02/17 04:33 Dose: 0.5 mg Vancomycin HCl 1 gm/ Sodium (Chloride) 250 mls @ 166.667 mls/hr IVPB Q12@0200, 1400 [facility] PRN Reason: Protocol Last Admin: 10/02/17 02:07 Dose: 166.667 mls/hr Piperacillin Sod/Tazobactam (Sod 3.375 gm/ Sodium Chloride) 100 mls @ 100 mls/ hr IVPB Q6 [facility] PRN Reason: Protocol Last Admin: 10/02/17 04:36 Dose: 100 mls/hr Lactated Ringer's (Lactated Ringer's) 1,000 mls @ 75 mls/hr IV .[id number] [facility] Last Admin: 10/01/17 05:00 Dose: 75 mls/hr Ibuprofen (Motrin Tab) 400 mg PO Q6 PRN PRN Reason: Headache Last Admin: 09/30/17 20:08 Dose: 400 mg Pantoprazole Sodium (Protonix Inj) 40 mg IVP DAILY [facility] Last Admin: 10/01/17 09:39 Dose: 40 mg - Labs Labs: 10/02/17 05:20 10/02/17 05:20 PT 11.2 Seconds (9.8-13.1) 09/30/17 06:15 INR 1.0 (0.9-1.2) 09/30/17 06:15 APTT 30.8 Seconds (25.6-37.1) 09/30/17 06:15 - Constitutional Appears: Non-toxic, No Acute Distress - Head Exam Head Exam: ATRAUMATIC - Eye Exam Eye Exam: EOMI. absent: Scleral icterus - Respiratory Exam Respiratory Exam: NORMAL BREATHING PATTERN. absent: Accessory Muscle Use, Chest Wall Tenderness - Cardiovascular Exam Cardiovascular Exam: +S1, +S2. absent: Bradycardia, Tachycardia - GI/Abdominal Exam GI & Abdominal Exam: Soft. absent: Distended, Firm, Tenderness - Exam Additional comments: Breast exam: YANET drain in place. minimal drainage. dressing and Incision C/D/I. surgical bra provides relief - Extremities Exam Extremities Exam: Normal Inspection. absent: Calf Tenderness - Neurological Exam Neurological Exam: Alert, Awake, Oriented x3 - Skin Skin Exam: Normal Color, Warm Assessment and Plan - Assessment and Plan (Free Text) Assessment: 47F bacteremia, infected right breast implant s/p bilateral breast implant removal with bilateral YANET placement, right breast scar excision POD#2 - cleared for discharge from a surgical standpoint - home on antibiotics. ID recs appreciated - J/P drain to remain in place. follow up with Dr. Beasley as outpatient this upcoming week - discussed with Dr. Ramos Calderon PGY1
[2017-10-02] MEDS: CYANOCOBALAMIN 500 MCG TAB PO SCH (09:03)
[2017-10-02] MEDS ORDERED: Piperacill/Tazo 3.375gm in Dex 3.375 GM/50 ML BAG IVPB SCH (16:00)
--- NOTE | 2017-10-02 16:29 | CP.PCM.PN ---
Subjective - Date & Time of Evaluation Date of Evaluation: 10/02/17 Time of Evaluation: 09:00 - Subjective Subjective: F/U R breast infection. Pt with post surgical tenderness, breathing well, no A/D. Objective - Vital Signs/Intake and Output Vital Signs (last 24 hours): Temp Pulse Resp BP Pulse Ox 98.0 F 68 18 122/68 100 10/02/17 07:24 10/02/17 07:24 10/02/17 07:24 10/02/17 07:24 10/02/17 07:24 - Labs Labs: 10/02/17 05:20 10/02/17 05:20 PT 11.2 Seconds (9.8-13.1) 09/30/17 06:15 INR 1.0 (0.9-1.2) 09/30/17 06:15 APTT 30.8 Seconds (25.6-37.1) 09/30/17 06:15 - Constitutional Appears: No Acute Distress - Head Exam Head Exam: NORMAL INSPECTION - Eye Exam Eye Exam: PERRL - ENT Exam ENT Exam: Normal Exam - Neck Exam Neck Exam: Normal Inspection - Respiratory Exam Respiratory Exam: Clear to Ausculation Bilateral Additional comments: S/P removal b/l breast implant, dressing in place. - Cardiovascular Exam Cardiovascular Exam: REGULAR RHYTHM - GI/Abdominal Exam GI & Abdominal Exam: Soft, Normal Bowel Sounds - Extremities Exam Extremities Exam: Normal Inspection - Back Exam Back Exam: NORMAL INSPECTION - Neurological Exam Neurological Exam: Alert, CN II-XII Intact. absent: Motor Sensory Deficit - Psychiatric Exam Psychiatric exam: Normal Mood - Skin Skin Exam: Warm Assessment and Plan (1) Infection of right breast Status: Acute (2) Bacteremia Status: Acute (3) Wound dehiscence Status: Acute (4) Multiple sclerosis Status: Chronic (5) Status post implant removal from both breasts Status: Acute - Assessment and Plan (Free Text) Plan: As per ID, Pt discharged with Doxycycline 100 po bid x 4 weeks, Clindamycin 300 mg po tid x 4 weeks. To f/u with PMD in a week, call Plastic Surgeon for appointment, call ID for f/u in 4 weeks.
--- NOTE | 2017-10-12 15:49 | OP ---
PROCEDURE DATE: 09/30/2017 POSTOPERATIVE DIAGNOSES: 1. Exposed right breast saline implant. 2. Possible infection of bilateral breast implants. POSTOPERATIVE DIAGNOSES: 1. Exposed right breast saline implant. 2. Possible infection of bilateral breast implants. PROCEDURE PERFORMED: 1. Exploration of bilateral chest and wash out. 2. Removal of bilateral breast prosthesis that were exposed, questionably infected. 3. Pulsatile lavage irrigation to bilateral chest open wound. PRIMARY SURGEON: Evi Beasley MD. EMPLOYMENT ASSISTANT SURGEON: Dr. Finn, resident. TYPE OF ANESTHESIA: General anesthesia with an LMA. ANESTHESIA ADMINISTERED BY: Shahla Hope MD. INDICATION FOR THE PROCEDURE: Please refer to consultation for history and physical. The patient was called back to the emergency room 2 days ago after her visit 5 days ago for questionably exposed or infected implants when her blood cultures were positive. The patient has been seen by the ID team. The patient has been on IV antibiotics. On physical exam, on the inframammary incision on the right breast, there was exposed implant. Several weeks ago, the patient was in the emergency room, at that time at [facility] with erythematous breast and was told to follow up with her plastic surgeon, who did her breast augmentation. The patient went back to her plastic surgeon and had the wounds closed in the office multiple times. The plastic surgeon did not remove the implants, he just closed the incision and she was given on oral antibiotics. I explained to the patient preoperatively that these breast implants, #1 on the right side is deflated. On CAT scan, it looks like there some air and tracking, so there could be an infection. The patient had positive blood cultures. The patient has had multiple ER visits for cellulitis and redness, that the prudent thing to do is to remove both implants, washout the area, the open wounds and leave drains. I explained to the patient and her family. She will come out looking deflated and asymmetric. I explained to her this is an emergency situation and I am only going to treat her for the emergency with just removing her exposed and questionably infected breast implants and dealing with her until her wounds heal. I told her in the future, if she needs to have her implants replaced, she should go back to her original plastic surgeon; however, I warned against this by telling the patient that the area is likely seated and there is going to be biofilm or some sort of bacteria and she is always going to be at above average risk for infection. Risks and benefits to the operation including but not limited to bleeding, hematoma, seroma, infection, wound dehiscence, poor scarring, poor cosmetic outcome, and the possibility of needing multiple reconstructive operations in the future were discussed with the patient and all questions were answered. DESCRIPTION OF PROCEDURE: The patient was taken to the operating room, placed under general anesthesia with an LMA. Perioperative antibiotics were confirmed. SCDs were placed on bilateral lower extremities. The chest was prepped and draped in usual clean and sterile manner. On the right side of her inframammary incision where there was exposed implant, an elliptical excision of old skin and scar tissue was made with a #15 scalpel and then with the electrocautery, dissected down to the breast capsule. The implant was already exposed. It was a deflated 330 mL saline implant. The implant was taken out after it was popped with a 10-blade and suctioned the saline out. It came out very easily. We then explored the cavity with a lighted retractor. There was no evidence of any pus or any bleeding. It was thoroughly irrigated with pulsatile lavage antibiotic irrigation. Incision was made large and the area was explored and there was no obvious sign of any infection. On the left breast, we made an incision with a #15 blade, dissected down with electrocautery to the breast capsule, entered it, popped the implant, there was also a saline implant, with a #10 blade, sucked out the fluid, pulled out the implant and made the incision larger, explored with a lighted retractor, irrigated with pulse lavage antibiotic irrigation. There was no obvious pus or bleeding or any signs of anything. After doing this and thoroughly irrigating and ensuring hemostasis, we placed two 10 mm JPs in the breast capsule. We did not perform a capsulectomy and drains were taken out through the incision, secured in place with 2-0 silk sutures and then the incisions, we only used half of the patient's previous excisions, were closed in the following manner with 3-0 Monocryl deep dermal sutures and then a running 4-0 nylon suture in each side. After doing this, the drains were set to suction, Bacitracin, Xeroform, dry dressing, and a surgical bra were placed. The patient awoke from anesthesia and transferred to recovery room in stable condition. FINDINGS: As above. DRAINS LEFT: A 10 mm YANET for bilateral breasts. ESTIMATED BLOOD LOSS: Minimal. COMPLICATIONS: None. SPECIMEN: Wound cultures were sent from both breasts. CONDITION: Stable. Evi Beasley MD
== END 2017-10-02 14:51 | disposition home or self-care (01) | DRG 581 ==
LOC: H.ER 09:23 → H.ERHOLD 14:15 → H.MEDSURG1 17:20
PROVIDERS: ADMIT Internal Medicine Pulmonary Disease; ATTEND Internal Medicine Pulmonary Disease
PROC: 0HPT0JZ Removal of Synthetic Substitute from Right Breast, Open Approach (ICD-10-PCS; 2017-09-30)
PROC: 0HPU0JZ Removal of Synthetic Substitute from Left Breast, Open Approach (ICD-10-PCS; principal; 2017-09-30 14:00)
DX: T81.4XXA Infection following a procedure, initial encounter (principal); T85.79XA Infection and inflammatory reaction due to other internal prosthetic devices, implants and grafts, initial encounter; T81.30XA Disruption of wound, unspecified, initial encounter; R78.81 Bacteremia; G35 Multiple sclerosis; Y83.1 Surgical operation with implant of artificial internal device as the cause of abnormal reaction of the patient, or of later complication, without mention of misadventure at the time of the procedure; N61.0 Mastitis without abscess; Z82.49 Family history of ischemic heart disease and other diseases of the circulatory system; Z83.3 Family history of diabetes mellitus; Z98.82 Breast implant status; G43.909 Migraine, unspecified, not intractable, without status migrainosus; N64.4 Mastodynia